=== PATIENT | female | born 1985 | race Caucasian/White ===

== ENCOUNTER 2018-01-01 11:03 | Emergency (ER) | payer OTHER ==
[~2018-01-01] VITALS: Ht 152.4 cm; Wt 87.6 kg
[~2018-01-01 11:03] MED LIST: BCPILLS PO
[2018-01-01 11:12] VITALS: TEMP 36.8; Ht 152.4 cm; Wt 87.6 kg
[2018-01-01] MEDS ORDERED: RANITIDINE HCL 50 MG/100 ML D5W IV STA (11:44)
[2018-01-01] MEDS ORDERED: PANTOprazole INJ 40 MG in SYRINGE 0 ML IV ONE (11:45)
--- NOTE | 2018-01-01 12:00 | DIAGNOSTIC IMAGING REPORT ---
CHEST ONE VIEW PORTABLE CLINICAL HISTORY: Chest pain dyspnea COMPARISON STUDY: No previous studies for comparison. FINDINGS: The bones soft tissues and hemidiaphragms are normal. The cardiomediastinal silhouette is normal. The lungs are clear. The pulmonary vasculature is normal. IMPRESSION: Negative chest. The above report was generated using voice recognition software. It may contain grammatical, syntax or spelling errors. Electronically signed by: Cameron Castro M.D. 01/01/2018 11:58 AM Dictated Date/Time: 01/01/2018 11:58 AM
[2018-01-01 12:21] LABS: HEMATOCRIT 36.9 % (37-47); MEAN CELL VOLUME 88.3 fL (80-100); MEAN CORPUSCULAR HEMOGLOBIN 31.1 pg (25-34); MEAN CORPUSCULAR HGB CONC 35.2 g/dl (32-36); MEAN PLATELET VOLUME 10.2 fL (7.4-10.4); PLATELET COUNT 234 K/uL (130-400); RED CELL DISTRIBUTION WIDTH CV 13.2 % (11.5-14.5); WHITE BLOOD COUNT 6.95 K/uL (4.8-10.8)
[2018-01-01 12:29] LABS: PTT PATIENT 23.7 SECONDS (21.0-31.0)
[2018-01-01 12:38] LABS: ALBUMIN 3.8 gm/dl (3.4-5.0); CALCIUM 8.8 mg/dl (8.5-10.1); CREATININE 0.86 mg/dl (0.60-1.20); POTASSIUM 3.7 mmol/L (3.5-5.1)
[2018-01-01 12:43] LABS: CKMB 1.9 ng/ml (0.5-3.6); TOTAL PROTEIN 7.5 gm/dl (6.4-8.2)
[2018-01-01] MEDS ORDERED: CALC500C3 PO (12:46)
[2018-01-01] MEDS ORDERED: PRLSR20 PO (12:46)
[2018-01-01] MEDS ORDERED: MISCCAP80 PO (12:46)
--- NOTE | 2018-01-01 12:57 | EMERGENCY ROOM VISIT NOTE ---
History First contact with patient: 11:33 Chief Complaint: CHEST PAIN Stated Complaint: CHEST PAIN, HEAVINESS Nursing Triage Summary: pt reports indigestion Monday, subsided. Started again today at 0645. epigastric pain, heaviness. denies SOB. denies cardiac hx History of Present Illness The patient is a 32 year old female who presents to the Emergency Room with complaints of chest pain. The patient states that at 645 this morning she had pain in the epigastric region which radiates up into the chest with some chest pressure. She currently rates the pain at a 3 out of 10. 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 They told her to come to the emergency room. The patient denies any associated shortness of breath, nausea or vomiting. The patient denies any jaw or arm pain. The patient states she had similar symptoms prior to having her gallbladder removed. She also states that Monday she had a lot of indigestion and heartburn. She takes Prilosec daily. The patient denies any history of any cardiac problems. She does have a maternal grandfather who had his first ID in his 40s. The patient denies tobacco use. The patient denies a history of hypertension or hypercholesteremia Review of Systems 10 system review was performed and was negative unless stated otherwise history of present illness. Past Medical/Surgical History Cholecystectomy, sinus surgery, asthma, wrist surgery, foot surgery, GERD Social History Smoking Status: Never Smoker Smokeless Tobacco Use: No Alcohol Use: none Drug Use: none Marital Status: Housing Status: lives with family Occupation Status: employed Current/Historical Medications Scheduled Calcium Carbonate (Tums), 1 TAB PO DAILY Omeprazole (Prilosec), 20 MG PO DAILY Probiotic Product (Probiotic), 1 CAP PO DAILY Physical Exam Vital Signs Date Time Temp Pulse Resp B/P (MAP) Pulse Ox O2 Delivery O2 Flow Rate FiO2 01/01/18 12:04 74 01/01/18 11:14 99 Room Air 01/01/18 11:12 36.8 85 18 150/80 98 Room Air Physical Exam GENERAL: 32-year-old white female appears in no acute distress. MENTAL Status: Alert and oriented 3. EYES: PERRLA. EOMs intact. NECK: Supple, no lymphadenopathy noted. No carotid bruits noted. LUNGS: Clear auscultation without wheezes rales or rhonchi. CARDIAC: Regular rate and rhythm with occasional ectopy. Pulses is full and equal throughout. ABDOMEN: Positive bowel sounds all 4 quadrants. Soft, nontender to palpation without organomegaly or masses. LOWER EXTREMITY is: Nontender to palpation throughout. No erythema or edema noted. Medical Decision & Procedures ER Provider Diagnostic Interpretation: CHEST ONE VIEW PORTABLE CLINICAL HISTORY: Chest pain dyspnea COMPARISON STUDY: No previous studies for comparison. FINDINGS: The bones soft tissues and hemidiaphragms are normal. The cardiomediastinal silhouette is normal. The lungs are clear. The pulmonary vasculature is normal. IMPRESSION: Negative chest. The above report was generated using voice recognition software. It may contain grammatical, syntax or spelling errors. Electronically signed by: Cameron Castro M.D. 01/01/2018 11:58 AM Laboratory Results 01/01/18 12:00 01/01/18 12:00 Test 01/01/18 12:00 01/01/18 12:04 Red Blood Count 4.18 M/uL (4.2-5.4) Mean Corpuscular Volume 88.3 fL (80-100) Mean Corpuscular Hemoglobin 31.1 pg (25-34) Mean Corpuscular Hemoglobin Concent 35.2 g/dl (32-36) RDW Standard Deviation 42.0 fL (36.4-46.3) RDW Coefficient of Variation 13.2 % (11.5-14.5) Mean Platelet Volume 10.2 fL (7.4-10.4) Prothrombin Time 10.5 SECONDS (9.0-12.0) Prothromb Time International Ratio 1.0 (0.9-1.1) Activated Partial Thromboplast Time 23.7 SECONDS (21.0-31.0) Partial Thromboplastin Ratio 0.9 Anion Gap 8.0 mmol/L (3-11) Est Creatinine Clear Calc Drug Dose 93.3 ml/min Estimated GFR () 104.3 Estimated GFR (Non- 90.0 BUN/Creatinine Ratio 17.8 (10-20) Calcium Level 8.8 mg/dl (8.5-10.1) Total Bilirubin 0.7 mg/dl (0.2-1) Aspartate Amino Transf (AST/SGOT) 254 U/L (15-37) Alanine Aminotransferase (ALT/SGPT) 390 U/L (12-78) Alkaline Phosphatase 113 U/L (45-117) Total Creatine Kinase 324 U/L (26-192) Creatine Kinase MB 1.9 ng/ml (0.5-3.6) Creatine Kinase MB Ratio 0.6 (0-3.0) Total Protein 7.5 gm/dl (6.4-8.2) Albumin 3.8 gm/dl (3.4-5.0) Globulin 3.7 gm/dl (2.5-4.0) Albumin/Globulin Ratio 1.0 (0.9-2) Bedside Troponin I < 0.030 ng/ml (0-0.045) Medications Administered Medications (Trade) Dose Ordered Sig/Mile Route Start Time Stop Time Status Last Admin Dose Admin Ranitidine HCl (zANTac IV) 50 mg NOW STAT IV 01/01/18 11:44 01/01/18 11:46 DC 01/01/18 12:22 50 MG Pantoprazole Sodium 40 mg/ Syringe 10 ml @ 5 mls/min NOW ONCE IV 01/01/18 11:45 01/01/18 11:46 DC 01/01/18 12:23 5 MLS/MIN ECG Indication: chest pain Rhythm: normal sinus Findings: no acute ischemic change ED Course Critical pathway had been initiated. IV access was obtained. The patient was given Zantac 150 mg IV and Protonix 40 mg IV push. The patient was on a monitor and continuous pulse ox. EKG was ordered and interpreted by myself without any acute findings. CBC and differential, renal profile, coags, CK-MB, [id number] troponin, LFTs was ordered and reviewed . White count was normal. Troponin was within normal range. CK-MB was normal.. Chest x-ray was ordered interpreted by the radiologist as above without any acute findings. I reevaluated the patient and she stated the pain had resolved. She was feeling much better. She was informed of all findings. The patient was discharged home in stable condition. Medical Decision Differential diagnosis include acute ID, cardiac arrhythmia, GERD, acute gastritis [place] Drug Monitoring Program Search Results: patient reviewed within database Medication Reconcilliation Current Medication List: was personally reviewed by me Blood Pressure Screening Patient's blood pressure: Elevated blood pressure Blood pressure disposition: Elevated BP felt to be situational Impression Primary Impression: GERD (gastroesophageal reflux disease) Additional Impression: Chest pain Departure Information Dispostion Home / Self-Care Condition GOOD Referrals Maryellen Ramsey PA-C (PCP) Forms Call Back Authorization, HOME CARE DOCUMENTATION FORM, IMPORTANT VISIT INFORMATION Patient Instructions Chest Pain - [facility], GERD, [facility] Additional Instructions Continue Prilosec daily. Also recommend [id number] Zantac 150 mg at bedtime. Avoid spicy or acidic foods. Follow-up with your family doctor in 2- 3 days for recheck. If you experience any severe chest pain, shortness of breath, diaphoresis return to ER immediately. Problem Qualifiers Primary Impression: GERD (gastroesophageal reflux disease) Esophagitis presence: esophagitis presence not specified Qualified Codes: K21.9 - Gastro-esophageal reflux disease without esophagitis Additional Impression: Chest pain Chest pain type: unspecified Qualified Codes: R07.9 - Chest pain, unspecified
[2018-01-01 13:15] VITALS: BP 144/77; PULSE 77; O2SAT 98
== END 2018-01-01 13:16 | disposition home or self-care (01) ==
LOC: C.EDB 11:07 → C.EDD 13:16
DX: K21.9 Gastro-esophageal reflux disease without esophagitis (principal); R07.9 Chest pain, unspecified; J45.909 Unspecified asthma, uncomplicated; Z90.49 Acquired absence of other specified parts of digestive tract; Z98.890 Other specified postprocedural states; Z82.49 Family history of ischemic heart disease and other diseases of the circulatory system; Z79.899 Other long term (current) drug therapy

== ENCOUNTER → 2018-01-23 | Outpatient (CLI) | payer OTHER ==
[~2018-01-23] MED LIST changes: -BCPILLS PO; +CALC500C3 PO; +MISCCAP80 PO; +PRLSR20 PO
[2018-01-23 18:22] LABS: ALBUMIN 3.9 gm/dl (3.4-5.0); ALT/SGPT 105 U/L (12-78); AST/SGOT 26 U/L (15-37); BLOOD UREA NITROGEN 13 mg/dl (7-18); CARBON DIOXIDE 28 mmol/L (21-32); CREATININE 0.86 mg/dl (0.60-1.20); GLUCOSE 98 mg/dl (70-99); POTASSIUM 3.9 mmol/L (3.5-5.1); SODIUM 138 mmol/L (136-145)
[2018-01-23 18:24] LABS: ALKALINE PHOSPHATASE 85 U/L (45-117); TOTAL PROTEIN 7.7 gm/dl (6.4-8.2)
[2018-01-23 19:19] LABS: HEP C IGG 13 YRS+OLDER_RFLX NEG (NEG)
[2018-01-25 03:29] LABS: HEPATITIS A IGM TC 51813E NON-REACTIVE (NON-REACTIVE); HEPATITIS B CORE IGM TC51854R NON-REACTIVE (NON-REACTIVE)
== END | disposition home or self-care (01) ==
LOC: C.LABBFT 03:30
PROVIDERS: ATTEND Family Medicine
DX: R79.89 Other specified abnormal findings of blood chemistry (principal)

== ENCOUNTER → 2018-02-01 | Outpatient (CLI) | payer OTHER ==
--- NOTE | 2018-02-01 09:34 | DIAGNOSTIC IMAGING REPORT ---
ABDOMEN LIMITED (US) HISTORY: Right upper quadrant pain ELEVATED LFT'S. COMPARISON: None. FINDINGS: Pancreas: The pancreas demonstrates a normal echotexture. Liver: Unremarkable. Gallbladder: Surgically removed CBD: 5 mm Right kidney: No hydronephrosis. IMPRESSION: Negative study post cholecystectomy. The above report was generated using voice recognition software. It may contain grammatical, syntax or spelling errors. Electronically signed by: Cameron Castro M.D. 02/01/2018 9:33 AM Dictated Date/Time: 02/01/2018 9:17 AM
== END | disposition home or self-care (01) ==
LOC: C.ULTR 08:38
PROVIDERS: ATTEND Family Medicine
DX: R79.89 Other specified abnormal findings of blood chemistry (principal); Z90.49 Acquired absence of other specified parts of digestive tract

== ENCOUNTER → 2018-04-13 | Outpatient (CLI) | payer OTHER ==
[2018-04-13 13:02] LABS: ALBUMIN 3.8 gm/dl (3.4-5.0); ALKALINE PHOSPHATASE 78 U/L (45-117); ALT/SGPT 18 U/L (12-78); AST/SGOT 10 U/L (15-37); BLOOD UREA NITROGEN 12 mg/dl (7-18); CALCIUM 8.7 mg/dl (8.5-10.1); CARBON DIOXIDE 31 mmol/L (21-32); CHOLESTEROL 131 mg/dl (0-200); CREATININE 0.87 mg/dl (0.60-1.20); GLUCOSE 102 mg/dl (70-99); LDL CHOLESTEROL CALCULATED 76 mg/dl; POTASSIUM 4.1 mmol/L (3.5-5.1); SODIUM 137 mmol/L (136-145); TOTAL PROTEIN 7.8 gm/dl (6.4-8.2)
== END | disposition home or self-care (01) ==
LOC: C.LABBFT 10:01
PROVIDERS: ATTEND Internal Medicine
DX: Z00.00 Encounter for general adult medical examination without abnormal findings (principal); K21.9 Gastro-esophageal reflux disease without esophagitis; R79.89 Other specified abnormal findings of blood chemistry